=== PATIENT | female | born 1960 | race Caucasian/White ===

== ENCOUNTER 2017-08-17 15:42 | Day surgery (SDC) | payer MEDICARE, MEDICAID ==
[~2017-08-17] VITALS: Ht 152.4 cm; Wt 69.2 kg
[2017-08-17] MEDS ORDERED: LASIX 20MG TABL20 MG PO (15:56)
[2017-08-17] MEDS ORDERED: EVISTA 60MG60 MG/TAB PO (15:56)
[2017-08-17] MEDS ORDERED: COREG 3.123.125 MG/T PO (15:57)
[2017-08-17] MEDS ORDERED: PROTONIX 40MG T40 MG PO (15:58)
[2017-08-17] MEDS ORDERED: COZAAR 25MG25 MG/TAB PO (15:58)
[2017-08-17] MEDS ORDERED: SEROQUEL 1100 MG/TAB PO (15:59)
[2017-08-17] MEDS ORDERED: KLONOPIN 0.5MG0.5 MG PO (16:00)
[2017-08-17] MEDS ORDERED: WELLBUTRIN XL150 MG PO (16:00)
[2017-08-17] MEDS ORDERED: SYNTHROID0.1 MG/TAB PO (16:01)
[2017-08-17] MEDS ORDERED: ZOCOR 80MG80 MG PO (16:02)
[2017-08-17] MEDS ORDERED: MULTI VITAMINS1 TAB PO (16:03)
[2017-08-17] MEDS ORDERED: NATURAL E400 IU PO (16:04)
[2017-08-17 16:08] VITALS: BP 130/82; PULSE 89; TEMP 98.2
[2017-08-17 17:05] VITALS: BP 138/82; PULSE 84
[2017-08-17 17:20] VITALS: BP 104/76; PULSE 77
== END 2017-08-17 17:35 | disposition home or self-care (01) ==
LOC: SDCO 15:42
DX: K21.0 Gastro-esophageal reflux disease with esophagitis (principal); K29.30 Chronic superficial gastritis without bleeding; R13.10 Dysphagia, unspecified
CPT/HCPCS: OP; J2250; J3010

== ENCOUNTER 2017-11-11 08:38 | Inpatient (IN) | payer MEDICARE, MEDICAID ==
[~2017-11-11] VITALS: Wt 70.4 kg
[2017-11-11] VITALS (16 sets, daily range): BP systolic 97–119; BP diastolic 54–85; PULSE 65–97; TEMP 98.3–99.6
[~2017-11-11 08:38] MED LIST: COREG 3.123.125 MG/T PO; COZAAR 25MG25 MG/TAB PO; EVISTA 60MG60 MG/TAB PO; KLONOPIN 0.5MG0.5 MG PO; LASIX 20MG TABL20 MG PO; MULTI VITAMINS1 TAB PO; NATURAL E400 IU PO; PROTONIX 40MG T40 MG PO; SEROQUEL 1100 MG/TAB PO; SYNTHROID0.1 MG/TAB PO; WELLBUTRIN XL150 MG PO; ZOCOR 80MG80 MG PO
[2017-11-11 14:16] LABS: PARTIAL THROMBOPLASTIN TIME 77.4 SECONDS (26.0-37.0)
[2017-11-11 16:21] LABS: HEMOGLOBIN 11.5 g/dl (12.5-16.0); MEAN CELL VOLUME 92 fl (80.0-100.0); MEAN CORPUSCULAR HEMOGLOBIN 31 pg (27.0-31.0); MEAN CORPUSCULAR HGB CONC 34 g/dl (33.0-37.0); PLATELET COUNT 267 K/mm3 (130-400); REDCELL DISTRIBUTION WIDTH-CV 13.4 % (11.5-14.5)
[2017-11-11 16:34] LABS: CALCIUM 8.4 mg/dL (8.4-10.2); CREATININE, serum 0.94 mg/dL (0.52-1.25); POTASSIUM 3.6 mmol/L (3.4-5.0)
[2017-11-12 03:53] VITALS: BP 90/58; PULSE 62; TEMP 98.4
[2017-11-12 04:13] VITALS: BP 90/58; PULSE 62; TEMP 98.4
[2017-11-12 07:43] VITALS: BP 105/63; PULSE 62; TEMP 98.3
== END 2017-11-12 12:31 | disposition home or self-care (01) | DRG 287 ==
LOC: MEDICAL 08:38
PROVIDERS: Family Medicine; Internal Medicine Cardiovascular Disease
PROC: B2111ZZ Fluoroscopy of Multiple Coronary Arteries using Low Osmolar Contrast (ICD-10-PCS; principal; 2017-11-11)
PROC: B2151ZZ Fluoroscopy of Left Heart using Low Osmolar Contrast (ICD-10-PCS; 2017-11-11)
PROC: 4A023N7 Measurement of Cardiac Sampling and Pressure, Left Heart, Percutaneous Approach (ICD-10-PCS; 2017-11-11)
DX: R07.89 Other chest pain (principal); I10 Essential (primary) hypertension; M54.5 Low back pain; G62.9 Polyneuropathy, unspecified; K21.9 Gastro-esophageal reflux disease without esophagitis
CPT/HCPCS: C1769; J1644; J7030; Q9967